=== PATIENT | female | born 1970 | race Asian ===

== ENCOUNTER 2017-03-20 05:27 | Day surgery (SDC) | payer OTHER ==
[~2017-03-20] VITALS: Ht 160 cm; Wt 60.8 kg
[~2017-03-20 05:27] MED LIST: DUEXIS 800-26.1 EACH PO; HAIR SKIN NAIL1 EACH PO; LIPITOR20 MG PO; [UNRECOGNIZED DRUG - OTHER]
[2017-03-20 07:06] VITALS: BP 115/73
[2017-03-20] MEDS ORDERED: ENDOCET 5-3251 EACH PO (12:16)
[2017-03-20 16:15] VITALS: BP 124/75
[2017-03-20 19:20] VITALS: BP 151/77
[2017-03-21] VITALS: BP 144/74
[2017-03-21 04:05] VITALS: BP 111/58
[2017-03-21 07:32] LABS: EOSINOPHIL (%) 0 % (0-5); HEMATOCRIT 32.3 % (36.0-46.0); IMMATURE GRANULOCYTE (%) 0.3 % (0.0-0.7); INSTRUMENT ABS NEUTROPHIL CT 8.8 K/uL; LYMPHOCYTE COUNT 2.1 K/uL (1.0-2.8); MCH 30.5 PG (29.0-34.0); MCHC 32.8 G/DL (30.0-36.0); MCV 92.8 FL (83-99); MEAN PLAT.VOLUME 9.9 uM^3 (9.5-12.4); MONOCYTE (%) 9.8 % (3-12); MONOCYTE COUNT 1.2 K/uL (0-0.8); NEUTROPHIL (%) 72.1 % (45-76); NEUTROPHIL COUNT 8.8 K/uL (1.8-6.4); RBC DIS.WIDTH-CV 11.6 % (11.8-14.6); RBC DIS.WIDTH-SD 39.5 % (39-53); RED BLOOD COUNT 3.48 M/uL (3.80-5.20); WHITE BLOOD COUNT 12.2 K/uL (4.1-10.2)
[2017-03-21 07:35] VITALS: BP 109/63
[2017-03-21 07:43] LABS: PLATELET COUNT 54 K/uL (156-360)
[2017-03-21 07:48] VITALS: BP 114/67
[2017-03-21 11:07] VITALS: BP 125/71
== END 2017-03-21 13:03 | disposition home or self-care (01) ==
LOC: SDC 05:27 → 2SOUTH 12:11 → ENRESERV 12:11 → 2SOUTH 12:11 → 2EAST 12:11 → ENRESERV 14:48 → SDC 15:06 → 2EAST 16:00 → SDC 16:18 → 2EAST 03-21 13:03
PROVIDERS: Obstetrics & Gynecology
PROC: 0UT74ZZ Resection of Bilateral Fallopian Tubes, Percutaneous Endoscopic Approach (ICD-10-PCS; principal; 2017-03-20)
PROC: 0UT94ZZ Resection of Uterus, Percutaneous Endoscopic Approach (ICD-10-PCS; principal; 2017-03-20)
PROC: 0TJB8ZZ Inspection of Bladder, Via Natural or Artificial Opening Endoscopic (ICD-10-PCS; principal; 2017-03-20)
PROC: 0DQP0ZZ Repair Rectum, Open Approach (ICD-10-PCS; principal; 2017-03-20)
PROC: 0DNW4ZZ Release Peritoneum, Percutaneous Endoscopic Approach (ICD-10-PCS; principal; 2017-03-20)
DX: D25.1 Intramural leiomyoma of uterus (principal); N80.0 Endometriosis of uterus; N73.6 Female pelvic peritoneal adhesions (postinfective); K91.71 Accidental puncture and laceration of a digestive system organ or structure during a digestive system procedure; E78.5 Hyperlipidemia, unspecified
CPT/HCPCS: 85025; 86850; 86900; 86901; 88307; G0378; J0131; J0330; J0690; J1100; J1170; J1885; J1956; J2250; J2405; J2710; J3010; J7120; S0030